=== PATIENT | male | born 1980 | race African-American/Black ===

== ENCOUNTER 2017-08-19 13:10 | Emergency (ER) | payer SELFPAY ==
[~2017-08-19] VITALS: Ht 165.1 cm; Wt 81.0 kg
[2017-08-19] MEDS ORDERED: METHOCARBAMOL 500MG TABLET PO ONE (19:45)
[2017-08-19] MEDS ORDERED: KETOROLAC 30MG/ML VIAL IM ONE (19:45)
[2017-08-19 21:11] VITALS: BP 133/81
== END 2017-08-19 21:23 | disposition home or self-care (01) ==
LOC: ER 14:19
DX: S46.812A Strain of other muscles, fascia and tendons at shoulder and upper arm level, left arm, initial encounter (principal); S29.012A Strain of muscle and tendon of back wall of thorax, initial encounter; W20.8XXA Other cause of strike by thrown, projected or falling object, initial encounter; Y93.89 Activity, other specified; Y92.89 Other specified places as the place of occurrence of the external cause; Y99.8 Other external cause status
CPT/HCPCS: 71101; 96372; 99284; J1885; Z7610